=== PATIENT | female | born 1970 | race Asian ===

== ENCOUNTER 2017-01-24 00:14 | Emergency (ER) | payer BC, OTHER ==
[2017-01-24 00:41] VITALS: BP 118/74; PULSE 81; TEMP 98.9; BMI 25.0
[2017-01-24] MEDS ORDERED: ASPIRIN 81 MG CHEWABLE TABLETS PO ONE (00:51)
--- NOTE | 2017-01-24 00:51 | PDOC ---
History of Present Illness - General History Source: Patient Exam Limitations: No Limitations - History of Present Illness Presenting Symptoms: Chest Pain Timing/Duration: reports: changing over time Severity/Quality: reports: moderate Chest Pain Radiation: reports: other (left arm) Activities at Onset: reports: none Prior Chest Pain/Cardiac Workup: reports: No prior chest pain Nitro Today/Relief: Yes: no nitro taken today Aspirin Received prior to arrival (Core Measure): Yes: provided by ED Associated Symptoms: Yes: Nausea - General Chief Complaint: Chest Pain Stated Complaint: CHEST DISCOMFORT Time Seen by Provider: 01/24/17 00:28 - History of Present Illness Initial Comments: 01/24/17 01:00 Heavyset 46 year old woman with a PMHx of diabetes (on Metformin and Lisinopril ) and unconfirmed HTN ,who presents to the emergency dept with experienced substernal cp that radiates to left arm around 1.5 hrs ago (11:30 pm) . She states she would rate her original pain as 8/10 and now 5/10. She states she experienced associated nausea. Denies vomiting or abdominal pain. She denies recent fevers, chills, headache or dizziness. She denies recent vomit , diarrhea or constipation. She denies recent dysuria, frequency, urgency or hematuria. She denies recent shortness of breath. Allergies: NKA Past surgical history: None reported. Social history: Nonsmoker. Denies EtOH use and recreational drug use. (Joanna Palmer) Past History - Suicide/Smoking/Psychosocial Hx Smoking History: Never smoked Have you smoked in the past 12 months: No Information on smoking cessation initiated: No Hx Alcohol Use: No Drug/Substance Use Hx: No - Past Medical History Allergies/Adverse Reactions: Allergies Allergy/AdvReac Type Severity Reaction Status Date / Time lisinopril Allergy Severe Difficulty Verified 01/24/17 00:58 Breathing Home Medications: Ambulatory Orders Metformin HCl [Metformin HCl ER] 500 mg PO BID 01/24/17 Review of Systems - Review of Systems Comments:: 01/24/17 01:01 CONSTITUTIONAL: Absent: fever, no chills, no fatigue EYES: Absent: visual changes ENT: Absent: ear pain, no sore throat CARDIOVASCULAR: Present: chest pain (pressure-like) Absent: no palpitations RESPIRATORY: Absent: cough, no SOB GI: Present: nausea Absent: abdominal pain, no vomiting, no constipation, no diarrhea GENITOURINARY: Absent: dysuria, no frequency, no hematuria MUSCULOSKELETAL: Absent: back pain, no arthralgia, no myalgia SKIN: Absent: rash NEURO: Absent: headache (Joanna Palmer) *Physical Exam - Vital Signs Last Vital Signs Temp Pulse Resp BP Pulse Ox 98.9 F 81 20 118/74 98 01/24/17 00:40 01/24/17 00:40 01/24/17 00:40 01/24/17 00:40 01/24/17 00:46 - Physical Exam Comments: 01/24/17 01:05 GENERAL: Well-appearing, well-nourished. No apparent distress. HEENT: Normocephalic, atraumatic. PERRL, EOM intact. CARDIOVASCULAR: Normal S1, S2. Regular rate and rhythm. PULMONARY: Clear to auscultation bilaterally. ABDOMEN: Soft, non-distended, non-tender. EXTREMITIES: Normal ROM in all four extremities. No gross deformities. SKIN: Warm, dry. No rash NEUROLOGICAL: No focal neurological deficits. (Joanna Palmer) ED Treatment Course - LABORATORY CBC & Chemistry Diagram: 01/24/17 01:05 01/24/17 01:45 - ADDITIONAL ORDERS Additional order review: 01/24/17 01:05 RBC 4.24 MCV 84.7 MCHC 33.4 RDW 13.4 MPV 7.9 Neutrophils % 52.5 Lymphocytes % 38.3 Monocytes % 7.0 Eosinophils % 1.3 Basophils % 0.9 - RADIOLOGY Radiology Studies Ordered: Category Date Time Status CHEST X-RAY PORTABLE* [RAD] Stat Radiology 01/24/17 00:52 Completed - Medications Given in the ED: ED Medications Discontinued Medications Generic Name Dose Route Start Last Admin Trade Name Freq PRN Reason Stop Dose Admin Aspirin 162 mg 01/24/17 00:51 01/24/17 01:19 Asa - PO 01/24/17 00:52 162 mg ONCE ONE Administration *DC/Admit/Observation/Transfer Diagnosis at time of Disposition: Chest pain - Discharge Dispostion Disposition: AGAINST MEDICAL ADVICE Condition at time of disposition: Unchanged/Unknown - Attestations Scribe Attestion: 01/24/17 01:05 Documentation prepared by Joanna Palmer, acting as medical referral coordinator for Radha Guerrero MD (Joanna Palmer)
[2017-01-24] MEDS ORDERED: ASPIRIN 81 MG CHEWABLE TABLETS ONE (01:03)
[2017-01-24 01:22] LABS: BASOPHIL 0.9 % (0-2.0); EOSINOPHIL 1.3 % (0-4.5); MCH 28.3 pg (25.7-33.7); MCHC 33.4 g/dl (32.0-36.0); MEAN CELL VOLUME 84.7 fl (80-96); MEAN PLT VOLUME 7.9 fl (7.5-11.1); NEUTROPHILS 52.5 % (42.8-82.8); PLATELET COUNT 233 K/MM3 (134-434); RDW 13.4 % (11.6-15.6); WHITE BLOOD COUNT 7.4 K/mm3 (4.0-10.0)
[2017-01-24 01:36] LABS: INR 0.95 (0.82-1.09); PROTHROMBIN TIME (PATIENT) 10.7 SEC (9.98-11.88)
--- NOTE | 2017-01-24 02:19 | PDOC ---
*Physical Exam - Vital Signs Last Vital Signs Temp Pulse Resp BP Pulse Ox 98.9 F 81 20 118/74 98 01/24/17 00:40 01/24/17 00:40 01/24/17 00:40 01/24/17 00:40 01/24/17 00:46 <Erich Mruphy - Last Filed: 01/24/17 03:16> - Vital Signs Last Vital Signs Temp Pulse Resp BP Pulse Ox 98.9 F 81 20 118/74 98 01/24/17 00:40 01/24/17 00:40 01/24/17 00:40 01/24/17 00:40 01/24/17 00:46 <Loulou Wolfe - Last Filed: 01/24/17 03:51> ED Treatment Course - LABORATORY CBC & Chemistry Diagram: 01/24/17 01:05 01/24/17 01:45 - ADDITIONAL ORDERS Additional order review: Laboratory Results 01/24/17 01/24/17 01:05 01:05 PT with INR 10.70 INR 0.95 Sodium Cancelled Potassium Cancelled Chloride Cancelled Carbon Dioxide Cancelled Anion Gap Cancelled BUN Cancelled Creatinine Cancelled Creat Clearance w eGFR Cancelled Random Glucose Cancelled Calcium Cancelled Magnesium Cancelled Total Bilirubin Cancelled AST Cancelled ALT Cancelled Alkaline Phosphatase Cancelled Creatine Kinase Cancelled Troponin I Cancelled Total Protein Cancelled Albumin Cancelled 01/24/17 01:05 RBC 4.24 MCV 84.7 MCHC 33.4 RDW 13.4 MPV 7.9 Neutrophils % 52.5 Lymphocytes % 38.3 Monocytes % 7.0 Eosinophils % 1.3 Basophils % 0.9 - Medications Given in the ED: ED Medications Discontinued Medications Generic Name Dose Route Start Last Admin Trade Name Connerq PRN Reason Stop Dose Admin Aspirin 162 mg 01/24/17 00:51 01/24/17 01:19 Asa - PO 01/24/17 00:52 162 mg ONCE ONE Administration <Erich Murphy - Last Filed: 01/24/17 03:16> - LABORATORY CBC & Chemistry Diagram: 01/24/17 01:05 01/24/17 01:45 - ADDITIONAL ORDERS Additional order review: Laboratory Results 01/24/17 01/24/17 01:05 01:05 PT with INR 10.70 INR 0.95 Sodium Cancelled Potassium Cancelled Chloride Cancelled Carbon Dioxide Cancelled Anion Gap Cancelled BUN Cancelled Creatinine Cancelled Creat Clearance w eGFR Cancelled Random Glucose Cancelled Calcium Cancelled Magnesium Cancelled Total Bilirubin Cancelled AST Cancelled ALT Cancelled Alkaline Phosphatase Cancelled Creatine Kinase Cancelled Troponin I Cancelled Total Protein Cancelled Albumin Cancelled 01/24/17 01:05 RBC 4.24 MCV 84.7 MCHC 33.4 RDW 13.4 MPV 7.9 Neutrophils % 52.5 Lymphocytes % 38.3 Monocytes % 7.0 Eosinophils % 1.3 Basophils % 0.9 - Medications Given in the ED: ED Medications Discontinued Medications Generic Name Dose Route Start Last Admin Trade Name Connerq PRN Reason Stop Dose Admin Aspirin 162 mg 01/24/17 00:51 01/24/17 01:19 Asa - PO 01/24/17 00:52 162 mg ONCE ONE Administration <Loulou Wolfe - Last Filed: 01/24/17 03:51> Medical Decision Making - Medical Decision Making 01/24/17 02:19 Worked up for chest pain, pain radiating to L arm PMHx: Diabetes Pt will need 2 sets of cardiac enzymes, 8 hrs apart. Pending disposition. Pain free now. 01/24/17 03:44 Patient signing out AMA. 01/24/17 03:51 ECG Reviewed by me at 0:30 Vent rate 78 bpm NSR Possible L atrial enlargement Nonspecific T wave abnormality <Loulou Wolfe - Last Filed: 01/24/17 03:51> *DC/Admit/Observation/Transfer - Discharge Dispostion Admit: Yes - Attestations Physician Attestion: 01/24/17 02:19 I, Dr. Erich Murphy, attest that this document has been prepared under my direction and personally reviewed by me in its entirety. I further attest, that it accurately reflects all work, treatment, procedures and medical decision -making performed by me. <Erich Murphy - Last Filed: 01/24/17 03:16> <Loulou Wolfe - Last Filed: 01/24/17 03:51> Diagnosis at time of Disposition: Chest pain Qualifiers: Chest pain type: unspecified Qualified Code(s): R07.9 - Chest pain, unspecified - Discharge Dispostion Condition at time of disposition: Unchanged/Unknown
[2017-01-24 03:09] LABS: ALBUMIN 3.5 g/dl (3.4-5.0); ANION GAP 10 (8-16); BILIRUBIN,TOTAL 0.3 mg/dL (0.2-1.0); CALCIUM 8.8 mg/dL (8.5-10.1); CO2 24 mmol/L (21-32); CREATININE 0.6 mg/dL (0.55-1.02); GLUCOSE,RANDOM 108 mg/dL (74-106); SGOT/AST 23 U/L (15-37); SGPT/ALT 60 U/L (12-78); TOT PROT 7.5 g/dl (6.4-8.2)
[2017-01-24 03:10] LABS: ALK PHOS 120 U/L (45-117)
[2017-01-24 03:12] LABS: CPK 107 IU/L (26-192); TROPONIN I < 0.02 ng/ml (0.00-0.05)
[2017-01-24 03:14] LABS: CHOLESTEROL 207 mg/dL (50-200)
--- NOTE | 2017-01-24 10:49 | EKG ---
Test Reason : Blood Pressure : / mmHG Vent. Rate : 078 BPM Atrial Rate : 078 BPM P-R Int : 170 ms QRS Dur : 086 ms QT Int : 378 ms P-R-T Axes : 059 059 048 degrees QTc Int : 430 ms POOR DATA QUALITY, INTERPRETATION MAY BE ADVERSELY AFFECTED NORMAL SINUS RHYTHM POSSIBLE LEFT ATRIAL ENLARGEMENT NONSPECIFIC T WAVE ABNORMALITY ABNORMAL ECG NO PREVIOUS ECGS AVAILABLE Confirmed by EMMANUEL LOVELL, ALESIA ([id number]) on 01/24/2017 10:48:54 AM Referred By: Confirmed By:ALESIA BENITEZ MD
== END 2017-01-24 03:59 | disposition left against medical advice (07) ==
LOC: JER 00:14
DX: R07.9 Chest pain, unspecified (principal); E11.9 Type 2 diabetes mellitus without complications; Z79.84 Long term (current) use of oral hypoglycemic drugs
CPT/HCPCS: 36415; 71010-TC; 80053; 80061; 82550; 83721; 84484; 85025; 85610; 93005; 93010; 99284-25